=== PATIENT | male | born 2000 | race Caucasian/White ===

== ENCOUNTER 2024-08-13 20:31 | Emergency (ER) | payer MEDICAID, OTHER ==
[2024-08-13 20:45] VITALS: PULSE 78; RESP 18; TEMP 97.4
--- NOTE | 2024-08-13 20:48 | ERPHSYRPT ---
- History of Present Illness Source: patient Exam Limitations: no limitations Physician History: Patient got bit by his dog. He has a laceration on his fifth finger of his left hand. He is on the volar surface is about a centimeter and a half in length. It is into the subcutaneous tissue but it is shallow. There is no involvement of nerves vessels or tendons or bones. Occurred: just prior to arrival Modifying Factors: Improves With: nothing Allergies/Adverse Reactions: No Known Drug Allergies Allergy (Unverified 11/23/13 13:01) Home Medications: No Home Meds [No Home Meds] 1 ea UD 11/23/13 [History] Hx Tetanus, Diphtheria Vaccination/Date Given: Yes Hx Influenza Vaccination/Date Given: No Hx Pneumococcal Vaccination/Date Given: No - Review of Systems Constitutional: No Symptoms Eyes: No Symptoms Musculoskeletal: No Symptoms Neurological: No Symptoms All Other Systems: Reviewed and Negative - Past Medical History Pertinent Past Medical History: No - Past Surgical History Past Surgical History: Yes Other Surgical History: HERNIA - Social History Smoking Status: Never smoker Exposure to second hand smoke: Yes Drug Use: none Patient Lives Alone: No - Nursing Vital Signs Nursing Vital Signs: Initial Vital Signs Temperature 97.4 F 08/13/24 20:38 Pulse Rate 78 08/13/24 20:38 Respiratory Rate 18 08/13/24 20:38 Blood Pressure 118/70 08/13/24 20:38 O2 Sat by Pulse Oximetry 97 08/13/24 20:38 Pain Scale Pain Intensity 5 - Physical Exam General Appearance: no apparent distress Elbow/Forearm Exam: normal inspection Wrist Exam: normal inspection Hand Exam: laceration Neuro/Tendon Exam: normal sensation, normal motor functions, normal tendon functions Mental Status Exam: alert, oriented x 3 Skin Exam: normal color - Progress Progress: improved Progress Note: There is a centimeter and a half laceration of his left fifth finger. It was into subcutaneous tissue but there is no involvement of deep structures. Peripheral neurovascular was intact distal to the injury. Procedure note the area was anesthetized with a digital block with 1% lidocaine. This thoroughly scrubbed and irrigated. Wound was repaired with 5-0 Ethilon. I am going to start him on Augmentin 08/13/24 20:46 Medical Desision Making - Risk of complications Minimal Risk: Minimal risk of morbidity - Departure Departure Disposition: Home Clinical Impression: Dog bite of hand Condition: Stable Critical Care Time: No Instructions: Animal Bites (DC) Prescriptions: Amox Tr/Potass Clav. 875 mg [Augmentin 875-125 Tablet] 875 mg PO BID #10 tablet
[2024-08-13] MEDS ORDERED: Augmentin 875-125 Tablet ONE (21:15)
[2024-08-13] MEDS: Augmentin 875-125 Tablet PO ONE (21:18)
[2024-08-13 21:36] VITALS: BP 124/68; O2SAT 98
== END 2024-08-13 21:39 | disposition home or self-care (01) ==
LOC: ED 20:31
DX: S61.257A Open bite of left little finger without damage to nail, initial encounter (principal); W54.0XXA Bitten by dog, initial encounter; Z79.899 Other long term (current) drug therapy
CPT/HCPCS: 12001; 99281; 99283; A9270-GY